=== PATIENT | male | born 1960 | race Caucasian/White ===

== ENCOUNTER 2017-03-01 09:43 | Emergency (ER) | payer SELFPAY ==
[~2017-03-01] VITALS: Ht 172.7 cm; Wt 76.0 kg
[2017-03-01 09:46] VITALS: BP 169/81; PULSE 94; RESP 16; TEMP 98.2; O2SAT 98
--- NOTE | 2017-03-01 10:33 | PD ---
HPI Chief Complaint: Skin Problem Time Seen by Provider: 10:08 Travel History International Travel<30 days: No Contact w/Intl Traveler<30days: No Traveled to known affect area: No History of Present Illness HPI Patient is a 56-year-old male who comes in because he says he has skin lesions and he can't take it anymore. He says he has had one for 25 years and one for 10 years. He has seen a matcher was done biopsies, he says burned them and cut them. He says he is frustrated and having pain. He says he has taken care of his who has Erie's disease and he just can't take it anymore. He says he does not have any money to see anymore specialists. He says nothing is new, he just has pain with trying to lift his . He has not taken anything for pain. He says he drinks of rum to cope. PFSH Past Medical History Medical History: Denies Significant Hx Tetanus Vaccination: > 5 Years Past Surgical History Surgical History: No Previous Surgery Social History Alcohol Use: Yes (DAILY X 30-40 YR) Tobacco Use: Yes Substance Use: No Allergies-Medications (Allergen,Severity, Reaction): Uncoded Allergies: BANDAIDS (Allergy, Mild, RASH, 03/01/17) Reported Meds & Prescriptions Reported Meds & Active Scripts Active No Active Prescriptions or Reported Medications Review of Systems General / Constitutional: No: Fever, Chills HENT: No: Headaches Cardiovascular: No: Chest Pain or Discomfort Respiratory: No: Shortness of Breath Gastrointestinal: No: Nausea, Vomiting Musculoskeletal: Positive: Pain Skin: Positive Lesions, No Change in Pigmentation Neurologic: No: Weakness, Dizziness Physical Exam Narrative GENERAL: Awake and alert, in no acute distress. SKIN: 2 ulcerated lesions on the back. One of the upper lumbar spine, one on his left shoulder. There is no surrounding erythema, there is no bruising of fluids. HEAD: Atraumatic. Normocephalic. EYES: Pupils equal and round. No scleral icterus. ENT: Mucous membranes pink and moist. CARDIOVASCULAR: Regular rate and rhythm. No murmur appreciated. RESPIRATORY: No accessory muscle use. Clear to auscultation. Breath sounds equal bilaterally. MUSCULOSKELETAL: No obvious deformities. No clubbing. No cyanosis. No edema. NEUROLOGICAL: Awake and alert. No obvious cranial nerve deficits. Motor grossly within normal limits. Normal speech. Data Data Last Documented VS Vital Signs Date Time Temp Pulse Resp B/P (MAP) Pulse Ox O2 Delivery O2 Flow Rate FiO2 03/01/17 10:39 03/01/17 09:46 98.2 94 16 98 [facility] Medical Decision Making Medical Screen Exam Complete: Yes Emergency Medical Condition: Yes Differential Diagnosis Infection versus chronic issues versus pain issue Narrative Course Patient is a 56-year-old male who comes in complaining of chronic skin lesions. He says he wants them cut out. I explained to him that we are unable to perform this procedure in the emergency department, that he should follow-up with a matcher or general surgeon. He says he is unable to afford these doctors. I offered to place a referral for him, however he says he just wants it taken care of. To him that we can treat infection or his pain. He says he does not want any of those things, he wants the lesion surgically removed. Again I offered to place mandatory referral to surgery, but he insists he is unable to afford this. He got up and he walked out of the room. Scripts No Active Prescriptions or Reported Meds Disposition: 07 AGAINST MEDICAL ADVICE Rachel Kingsley MD Mar 01, 2017 10:33
== END 2017-03-01 10:40 | disposition left against medical advice (07) ==
LOC: NEPC 09:43
DX: L98.9 Disorder of the skin and subcutaneous tissue, unspecified (principal); Z72.0 Tobacco use
CPT/HCPCS: 99281